=== PATIENT | male | born 1985 | race Two or more races ===

== ENCOUNTER 2016-10-07 15:36 | Emergency (ER) | payer OTHER ==
[2016-10-07 15:53] VITALS: TEMP 97.9
--- NOTE | 2016-10-07 16:39 | EDPHY ---
H & P HPI/ROS: CHIEF COMPLAINT: Right knee pain and swelling History by patient HISTORY OF PRESENT ILLNESS: 31-year-old man presents complaining of 3 days of right knee pain and swelling. Patient states he was working at home while kneeling 4 days ago when he got up he had a little bit of pain in both knees but then the next morning he woke up in his right knee was very painful and swollen. It feels worse when he keeps have been for a long time. It has not been read. There has been no fever. He denies any rash, urinary symptoms or penile discharge. He has never had anything like this before. REVIEW OF SYSTEMS: As in HPI, and all other systems reviewed and are negative Smoking Status: Never smoked Physical Exam: General Appearance: Alert and no distress. Eyes: Pupils equal and round no injection. Musculoskeletal: Neck is supple and nontender. Extremities: Right knee with swelling, +discolored skin over inferior patellar region ? eccymosis, + decreased range of motion secondary to pain but full range of motion passively, positive tenderness patella and inferior to the patella, positive swelling but no erythema, DP pulse 2 +and equal to the left, distal sensation intact. Skin: No rashes or lesions. Constitutional: Initial Vital Signs Temperature (C) 36.6 C 10/07/16 15:49 Heart Rate 69 10/07/16 15:49 Respiratory Rate 18 10/07/16 15:49 Blood Pressure 129/76 H 10/07/16 15:49 O2 Sat (%) 95 10/07/16 15:49 O2 Delivery Mode Room Air Allergies/Adverse Reactions: No Known Allergies Allergy (Unverified 10/07/16 16:33) Home Medications: Medication Instructions Recorded Naproxen 500 mg PO BID PRN #20 tablet 10/07/16 MDM/Departure - MDM Imaging Results: Imaging Impressions Knee X-Ray 10/07/16 16:34 Impression: 1. Lateral patellar tilt. 2. No definite fracture or significant degenerative changes. Imaging: I viewed and interpreted images myself Procedures: Procedure: Arthrocentesis. After verbal informed consent was obtained explaining the risks including but not limited to infection and bleeding a arthrocentesis was performed on the right knee. The patient was prepped and draped in the usual sterile fashion. The joint was anesthetized with 1% lidocaine with epinephrine. Approximately 10 cc of clear yellow fluid was obtained. There were no complications. The procedure was performed by myself. Medications Given: Discontinued Medications Acetaminophen (Tylenol) 975 mg PO EDNOW ONE Stop: 10/07/16 18:13 Last Admin: 10/07/16 18:18 Dose: 975 mg Ibuprofen (Motrin) 600 mg PO EDNOW ONE Stop: 10/07/16 18:13 Last Admin: 10/07/16 18:18 Dose: 600 mg ED Course/Re-evaluation: 31-year-old man presents with right knee pain and significant swelling. Although he has range of motion I doubt septic arthritis I was concerned about the possibility of gout since there was no trauma to the knee and it was significantly warm and swollen. Arthrocentesis was there performed. White blood cell count was 5, right blood cell count 1 0 to and preliminary result was no crystals. Because of the patient's swelling and pain is therefore unclear. Patient is placed in a knee immobilizer for comfort. We discussed anti-inflammatories and ice and I am referring him to Orthopedics for follow- up. We discussed return precautions including but not limited to fever, redness , worsening. Patient and his expressed verbal understanding of the plan. - Depart Disposition: Home, Routine, Self-Care Clinical Impression: Swollen R knee Condition: Good Instructions: Patellar Tendinitis (ED) Additional Instructions: You were seen by Dr. Amanda Hyatt today. We have not found an infection in your knee. You have an inflammation of the or patellar tendon. I recommend following up with your primary care physician or orthopaedic doctor within the next week. Wear knee immobilizer for comfort. Ice your knee every few hours to help the swelling and pain. Return for any worsening or new concerns. Prescriptions: Naproxen 500 mg PO BID PRN #20 tablet PRN Reason: pain Referrals: SHA BRICENO,. [Primary Care Provider] - As per Instructions Terrie Guevara MD [Medical Doctor] - As per Instructions
[2016-10-07 17:45] VITALS: RESP 20
[2016-10-07] MEDS ORDERED: ACETAMINOPHEN 325 MG TAB PO ONE (18:12)
[2016-10-07] MEDS ORDERED: IBUPROFEN 600 MG TAB PO ONE (18:12)
[2016-10-07 19:46] LABS: WBC, SYNOVIAL FLUID 5 /mm3 (0-150)
[2016-10-07 20:15] VITALS: BP 123/59; PULSE 58; O2SAT 95
[2016-10-07 22:21] LABS: CRYSTALS, SYNOVIAL FLUID NONE SEEN (NONE SEEN)
== END 2016-10-07 20:15 | disposition home or self-care (01) ==
LOC: CED 15:36
PROC: 0S9C3ZZ Drainage of Right Knee Joint, Percutaneous Approach (ICD-10-PCS; principal; 2016-10-07)
DX: M25.461 Effusion, right knee (principal)
CPT/HCPCS: 73562-PO; L1832